=== PATIENT | female | born 1980 | race African-American/Black ===

== ENCOUNTER 2016-09-03 11:35 | Emergency (ER) ==
[2016-09-03 12:11] VITALS: BP 155/99
--- NOTE | 2016-09-03 12:44 | PROVIDER DOCUMENTATION ---
HPI-EENT General - General Chief Complaint: Toothache Stated Complaint: COHN/LEFT SIDE GUM SWOLLEN Time Seen by Provider: 09/03/16 12:13 Source: patient Allergies/Adverse Reactions: Patient Allergies Allergy/AdvReac Type Severity Reaction Status Date / Time azithromycin Allergy HIVES Verified 09/03/16 12:41 erythromycin base AdvReac Severe ITCHING Verified 09/03/16 12:41 Home Medications: Home Medication List Medication Instructions Recorded Confirmed Last Taken Type Lisinopril 2.5 mg PO DAILY 04/07/16 09/03/16 08/31/16 History Lisinopril [Zestril] 2.5 mg PO DAILY #30 tablet 09/03/16 Unknown Rx Penicillin V Potassium 500 mg PO BID #20 tablet 09/03/16 Unknown Rx Tramadol/APAP [Ultracet 1 each PO Q6H PRN PRN #5 tablet 09/03/16 Unknown Rx 37.5MG/325Mg] - History of Present Illness-EENT General Nature of Presenting Problem: 36 y/o BF c/o L lower jaw toothache x 3 days. Pt states the tooth chipped on Friday and has had worsening pain to the area and notes swelling at the gumline today. Pt also states that she needs refill of lisinopril. Review of Systems - Adult - REVIEW OF SYSTEMS - ADULT Constitutional: reports: no symptoms reported. denies: chills, fever Eyes: reports: no symptoms reported. denies: blurred vision, double vision Ears, Nose, Mouth & Throat: reports: see HPI, mouth/dental pain. denies: ear pain, nose pain Cardiovascular: reports: no symptoms reported. denies: chest pain, palpitations Respiratory: reports: no symptoms reported. denies: dyspnea on exertion, shortness of breath Gastrointestinal: reports: no symptoms reported. denies: nausea, vomiting Genitourinary: reports: no symptoms reported. denies: dysuria, frequency Musculoskeletal: reports: no symptoms reported. denies: joint pain, joint swelling Integumentary: reports: no symptoms reported. denies: nail changes, rash Neurological: reports: no symptoms reported. denies: headache/migraines, numbness, paresthesia Psychiatric: reports: no symptoms reported Endocrine: reports: no symptoms reported. denies: cold intolerance, heat intolerance Hematologic/Lymphatic: reports: no symptoms reported. denies: easy bruising, prolonged bleeding Allergic/Immunologic: reports: no symptoms reported All Other Systems: Reviewed and Negative Past History - Adult - PAST MEDICAL HISTORY-ADULT Review of Records: reports: Nursing Assessment Review, Medications Reviewed Major Childhood Illnesses: reports: denies history Cardiovascular: reports: denies history Respiratory: reports: denies history Gastrointestinal: reports: denies history Obstetrical/Gynecological: reports: denies history Genitourinary: reports: denies history Musculoskeletal: reports: denies history Neurological: reports: denies history Psychiatric: reports: denies history Endocrine/Immune: reports: denies history Other Conditions: reports: denies history - PRIOR SURGERIES/PROCEDURES Surgical/Procedure History: reports: - PRIOR HOSPITALIZATIONS Prior Hospitalizations: reports: for other non-related - IMMUNIZATION STATUS Childhood Immunizations: See Nurse Assessment Flu Vaccine: See Nurse Assessment - FAMILY HISTORY Family History: reviewed, not pertinent - SOCIAL HISTORY Smoking: cigarettes, less than 1 pack/day Physical Exam- EENT - Physical Exam EENT Initial Vital Signs Reviewed: Yes General Appearance: alert, mild distress Eye Exam: bilateral eye: normal inspection Ear Exam: bilateral ear: auricle normal Nasal Exam: normal inspection. negative: sinus tenderness Throat Exam: normal mouth inspection, pharynx normal, dental tenderness. negative: tonsillar exudate, tonsillar swelling Mouth,Throat: 1 - dental decay with redness and swelling to gingiva Neck: supple, normal inspection, lymphadenopathy (generalized, mild, cervical) Respiratory: no respiratory distress Lymphatic: negative: cervical node tenderness Back Exam: normal inspection Extremity: normal gait Integumentary: normal color, normal turgor, warm/dry Neurologic: negative: aphasia Psych/Mental Status: normal mood/affect, normal thought content, normal thought process, oriented x 3 Progress - PLAN OF CARE/RESULTS Progress/Plan/Lab Results: Vital Signs Temp Pulse Resp BP Pulse Ox 09/03/16 12:08 98.3 F 65 16 155/99 100 azithromycin Allergy (Verified 09/03/16 12:41) HIVES erythromycin base Adverse Reaction (Severe, Verified 09/03/16 12:41) ITCHING Lisinopril 2.5 mg PO DAILY 04/07/16 Lisinopril [Zestril] 2.5 mg PO DAILY #30 tablet 09/03/16 Penicillin V Potassium 500 mg PO BID #20 tablet 09/03/16 Tramadol/APAP [Ultracet 37.5MG/325Mg] 1 each PO Q6H PRN PRN #5 tablet 09/03/16 Pt declined dental block. Discussed medication use and f/u with dentist for further management. Pt given a copy of free dental clinics. Departure - Departure Time of Disposition Order: 12:41 DIAGNOSIS: Dental decay, Dental abscess Disposition: HOME 01 Certified Medical Emergency: Emergent Condition: Stable Additional Instructions: Take medications as directed. Follow up with dentist for further management of teeth. ED Follow Up Instructions: You have been treated by a care provider in the Emergency Department. These instructions are being provided to you so you can have an understanding of how to care for yourself upon discharge. Upon discharge from the Emergency Department, you are responsible for making arrangements for follow-up care by a physician of your choice. Take all prescribed medications as directed. Return to the Emergency Department immediately for any new or worsening symptoms. You may call the Physician Referral phone number at [phone] to obtain a list of Physicians who are taking new patients. Prescriptions: Penicillin V Potassium 500 mg PO BID #20 tablet Tramadol/APAP [Ultracet 37.5MG/325Mg] 1 each PO Q6H PRN PRN #5 tablet PRN Reason: Pain Lisinopril [Zestril] 2.5 mg PO DAILY #30 tablet Referrals: Stephane Miller [Primary Care Provider] - Instructions: Dental Pain, Plam-dy-Cpur Attestation - Physician/ [facility] Attestation Patient care was provided by Advanced Practice Provider:: Yes Advanced Practice Provider:: Disha Chavarria Advanced Practice Provider documentation review:: The Mid-level provider documentation, treatment plan and medical decision making was reviewed by the physician who agrees with all treatment and medical decision making by the MLP.
== END 2016-09-03 12:54 | disposition home or self-care (01) ==
LOC: ED 11:35
DX: K04.7 Periapical abscess without sinus (principal); K02.9 Dental caries, unspecified; K08.89 Other specified disorders of teeth and supporting structures; R59.0 Localized enlarged lymph nodes; Z79.899 Other long term (current) drug therapy